=== PATIENT | female | born 1990 | race Caucasian/White ===

== ENCOUNTER 2024-01-20 08:20 | Emergency (ER) | payer OTHER ==
[~2024-01-20] VITALS: Ht 162.6 cm; Wt 75.6 kg
[2024-01-20] MEDS: KETOROLAC 30 MG/ML 1ML VIAL IM ONE (09:47)
[2024-01-20] MEDS: diazePAM 5MG TABLET PO ONE (09:48)
[2024-01-20] MEDS: LIDOCAINE 5% (LIDODERM) PATCH TD ONE (09:48)
[2024-01-20] MEDS: methocarbamoL 500 MG TAB PO ONE (11:18)
[2024-01-20] MEDS: ACETAMINOPHEN 500 MG TAB PO ONE (11:18)
[2024-01-20] MEDS ORDERED: HOME MED LIST COMPLETE! XX SCH (11:35)
[2024-01-20] MEDS: LIDOCAINE 1% MDV 20ML VIAL SC ONE (11:50)
[2024-01-20 12:50] VITALS: BP 116/76; TEMP 99.5; O2SAT 97
[2024-01-20] MEDS ORDERED: METH-1164 PO (12:58)
== END 2024-01-20 13:01 | disposition home or self-care (01) ==
LOC: M ED 08:20
DX: M62.838 Other muscle spasm (principal); M79.601 Pain in right arm; X50.0XXA Overexertion from strenuous movement or load, initial encounter; F12.10 Cannabis abuse, uncomplicated; Z79.899 Other long term (current) drug therapy; Z88.2 Allergy status to sulfonamides
CPT/HCPCS: 20552; 96372; 99283; J1885